=== PATIENT | male | born 1990 | race Caucasian/White ===

== ENCOUNTER 2017-02-13 07:48 | Emergency (ER) | payer OTHER, SELFPAY ==
[2017-02-13] MEDS ORDERED: Ketorolac Tromethamine 60 MG/2 ML VIAL ONE (09:13)
== END 2017-02-13 09:35 | disposition home or self-care (01) ==
LOC: MADERS 07:48
DX: J06.9 Acute upper respiratory infection, unspecified (principal)
CPT/HCPCS: 96372; J1885

== ENCOUNTER 2020-05-07 16:26 | Emergency (ER) | payer SELFPAY | END 2020-05-07 18:17 | disposition home or self-care (01) | LOC: MADERS 16:26 | DX: M25.512 Pain in left shoulder (principal); I10 Essential (primary) hypertension; R73.03 Prediabetes; E66.9 Obesity, unspecified; F17.220 Nicotine dependence, chewing tobacco, uncomplicated; Z79.899 Other long term (current) drug therapy | CPT/HCPCS: 99281 ==

== ENCOUNTER 2023-02-15 01:36 | Emergency (ER) | payer OTHER ==
[2023-02-15 01:59] LABS: #Basophils 0.1 thou/uL (0.0-0.2); #Eosinphils 0.3 thou/uL (0.0-0.7); #Lymphocytes 3.5 thou/uL (1.20-3.40); #Monocytes 0.9 thou/uL (0.11-0.59); #Neutrophils 4.3 thou/uL (1.40-6.50); %Basophils 1.5 % (0.0-1.0); %Lymphocytes 38.2 % (21.0-51.0); %Monocytes 9.8 % (0.0-10.0); %Neutrophils 47.6 % (42.0-75.0); Hematocrit 46.8 % (42.0-52.0); Hemoglobin 15.3 g/dL (14.0-18.0); Mean Corpuscular HGB CONC 32.8 g/dL (32.0-36.0); Mean Corpuscular Hemoglobin 30.1 pg (27.0-31.0); Mean Corpuscular Volume 91.9 fl (78.0-98.0); Mean Platelet Volume 9.5 fL (7.4-10.4); Platelet Count 277 10x3/uL (130-400); White Blood Cell (WBC) Count 9.1 10x3/uL (4.8-10.8)
[2023-02-15] MEDS ORDERED: Aspirin Chewable 81 MG TAB ONE (01:59)
[2023-02-15] MEDS ORDERED: Morphine 4 MG/ML VIAL ONE (02:16)
[2023-02-15] MEDS ORDERED: Nitroglycerin 0.4 MG TAB 1 EACH ONE (02:16)
[2023-02-15] MEDS ORDERED: Ondansetron PF 4 MG/2 ML Vial ONE (02:16)
[2023-02-15 02:22] LABS: ALT (SGPT) 32 U/L (8-55); AST (SGOT) 18 U/L (5-34); Albumin 4.1 g/dL (3.5-5.0); Alkaline Phosphatase 73 U/L (40-110); Anion Gap 18 mmol/L (10-20); BUN (Urea Nitrogen) 13 mg/dL (8.9-20.6); Bilirubin, Total 0.2 mg/dL (0.2-1.2); Calc. Creatinine Clearance 0 mL/min (70-130); Calcium 9.8 mg/dL (7.8-10.44); Carbon Dioxide 22 mmol/L (22-29); Chloride 104 mmol/L (98-107); Estimated GFR 119; Glucose 117 mg/dL (70-105); Potassium 3.6 mmol/L (3.5-5.1); Protein, Total 7.1 g/dL (6.0-8.3); Sodium 140 mmol/L (136-145); Troponin I Less than 0.010 ng/mL (< 0.028)
[2023-02-15] MEDS ORDERED: Nitroglycerin 2% Ointment 1 INCH/1 GM Packet ONE (05:01)
[2023-02-15 05:38] LABS: Troponin I Less than 0.010 ng/mL (< 0.028)
== END 2023-02-15 05:38 | disposition short-term general hospital (02) ==
LOC: MADERS 01:36
DX: R07.2 Precordial pain (principal); I10 Essential (primary) hypertension; F17.210 Nicotine dependence, cigarettes, uncomplicated
CPT/HCPCS: 71045; 80053; 83690; 84484; 85025; 85379; 93005; 96374; 96375; J2270; J2405